=== PATIENT | female | born 1960 | race Two or more races ===

== ENCOUNTER → 2017-01-15 | Outpatient (CLI) | payer OTHER | LOC: MAMMO 09:09 | PROVIDERS: ATTEND Family Medicine ==

== ENCOUNTER → 2018-08-12 | Outpatient (CLI) | payer OTHER ==
--- NOTE | 2018-08-14 18:38 | RAD ---
DATE: 08/12/2018 EXAM: MAMMO KIZZY SCREENING BILATERAL HISTORY: Routine screening COMPARISON: 01/27/2016, 12/28/2014, and 11/23/2013 mammographic exams This study was interpreted with the benefit of Computerized Aided Detection (CAD). Breast Density: SCATTERED The breast parenchyma shows scattered fibroglandular densities. Breast parenchyma level B. FINDINGS: Small masses involving the right breast are stable compared to 01/27/2016. No distortion. Benign calcifications are present. No new mass. IMPRESSION: Benign findings. BI-RADS CATEGORY: 1 NEGATIVE RECOMMENDED FOLLOW-UP: 12M 12 MONTH FOLLOW-UP PQRS compliance statement: Patient information was entered into a reminder system with a target due date in one year for the next mammogram. Mammography is a sensitive method for finding small breast cancers, but it does not detect them all and is not a substitute for careful clinical examination. A negative mammogram does not negate a clinically suspicious finding and should not result in delay in biopsying a clinically suspicious abnormality. "Our facility is accredited by the [employer] Mammography Program."
== END | disposition home or self-care (01) ==
LOC: MAMMO 08:31
PROVIDERS: ATTEND Family Medicine
DX: Z12.31 Encounter for screening mammogram for malignant neoplasm of breast (principal); N64.89 Other specified disorders of breast
CPT/HCPCS: 77063; 77067

== ENCOUNTER → 2020-06-02 | Outpatient (CLI) | payer OTHER ==
--- NOTE | 2020-06-02 11:08 | RAD ---
DATE: 06/02/2020 8:13 AM EXAM: MAMMO KIZZY SCREENING BILATERAL HISTORY: Screening COMPARISON: 08/12/2018, 01/27/2016 Bilateral CC and MLO views of the breasts were performed. Bilateral breast tomosynthesis was performed in CC and MLO projections. This study was interpreted with the benefit of Computerized Aided Detection (CAD). FINDINGS: Breast Density: SCATTERED The breast parenchyma shows scattered fibroglandular densities. Breast parenchyma level B No suspicious masses, microcalcifications or architectural distortion is present to suggest malignancy in either breast. The visualized axillae are unremarkable. IMPRESSION: No mammographic evidence of malignancy. BI-RADS CATEGORY: 1 NEGATIVE RECOMMENDED FOLLOW-UP: 12M 12 MONTH FOLLOW-UP Annual screening mammography is recommended, unless clinically indicated sooner based on symptoms or change in physical exam. PQRS compliance statement: Patient information was entered into a reminder system with a target due date for the next mammogram. Mammography is a sensitive method for finding small breast cancers, but it does not detect them all and is not a substitute for careful clinical examination. A negative mammogram does not negate a clinically suspicious finding and should not result in delay in biopsying a clinically suspicious abnormality. "Our facility is accredited by the [employer] Mammography Program."
== END ==
LOC: MAMMO 08:22
PROVIDERS: ATTEND Family Medicine
DX: Z12.31 Encounter for screening mammogram for malignant neoplasm of breast (principal)
CPT/HCPCS: 77063; 77067

== ENCOUNTER → 2020-11-07 | Outpatient (CLI) | payer OTHER ==
[2020-09-16 13:43] VITALS: BP 101/54
[~2020-11-07] MED LIST: CYCL5TAB PO; DILT120C99 PO; FAMO20TA5 PO; PANT40TA6 PO; REGADENOSON 0.4 MG/5 ML DISP.SYRIN. IV ONE
--- NOTE | 2020-11-07 12:03 | RAD ---
MR#: [id number] Date of Study: 11/07/2020 Ordering Physician: DAVIDA TIERNEY, Referring Physician: DELROY AGUIRRE Tech: CHRISTINE Ambriz APPROVED REPORT Test Type: Pharmacological Stress Nurse/Tech: Mariela Etienne RN Test Indications: Chest Pain Cardiac History: See EMR. Medications: See EMR. Medical History: Asthma, See EMR. Resting ECG: SR Resting Heart Rate: 65 bpm Resting Blood Pressure: 151/69mmHg Pretest Chest Pain: No chest pain Nurse/Tech Notes Lungs CTA, Heart tones regular. Consent: The procedure was explained to the patient in lay terms. Informed consent was witnessed. Miguel A eout was entered into [employer] History and Stress Test performed by RT Tommy (R) (N) Pharm. Details Pharmacologic stress testing was performed using 0.4mg per 5ml of regadenoson given intravenously ove r 7-10 seconds. Stress Symptoms No chest pain or symptoms. POST EXERCISE Reason for Termination: Infusion complete Max HR: 103 bpm Max Blood Pressure: 153/71mmHg Blood Pressure response to exercise: Normal blood pressure response during stress. Heart Rate response to exercise: WNL Chest Pain: No. Arrhythmia: No. ST Change: No. INTERPRETATION Stress EKG Conclusion: Baseline EKG showed sinus rhythm. No ischemic changes at peak stress. No arr hythmias. Imaging Protocol IMAGE PROTOCOL: Rest Tc-99m/stress Tc-99m 1 day Rest: Stress: Viability: Radiopharm.Tc99m FzcifkhmaRi71s Sestamibi Zpee18eDa 32mCi Duration 15min. 13min. Img Date 11/07/2020 11/07/2020 Inj-Img [id number]. 60min. Rest Admin Site:IV - Right AntecubitalAdministrator:CHRISTINE Ambriz Stress Admin Site: IV - Right AntecubitalAdministrator: RT Tommy (R)(N) STRESS DATA End Diast. Vol.80.0mlLVEDV index BSA51.0ml End Syst. Vol.20.0mlLVESV index BSA13.0ml Myocardial Zsgm555.0gEject. Qsrtgoow41.0% Stress Scores Regional WT0.00Summed WT0.00 Regional WM0.00Summed WM0.00 Study quality was good. Left Ventricular size was Normal at Rest and Stress. Lung uptake was . Left Ventricular ejection fraction is 75%. The rest and stress images show normal perfusion, normal contraction and thickening. LV Perf. Quant 17 Seg. SSS0.00 17 Seg. SRS1.00 17 Seg. SDS0.00 Stress Defect Extent (% LAD)0.00Rest Defect Extent (% LAD)4.40Rev. Defect Extent (% LAD)0.00 Stress Defect Extent (% LCX) 0.00Rest Defect Extent (% LCX)0.00Rev. Defect Extent (% LCX)0.00 Stress Defect Extent (% RCA)0.00Rest Defect Extent (% RCA)0.00Rev. Defect Extent (% RCA)0.00 Stress Defect Extent (% ELBERT)0.00Rest Defect Extent (% ELBERT)1.50Rev. Defect Extent (% ELBERT)0.00 Conclusion 1. Regadenoson cardioisotope stress test did not show any evidence of ischemia or infarct. 2. Normal left ventricular systolic function with ejection fraction calculated at 75%. 3. Low risk for cardiac events. Signed by : Zackary Burgess, Electronically Approved : 11/07/2020 12:03:20
== END ==
LOC: NM 08:42
PROVIDERS: ATTEND Internal Medicine Cardiovascular Disease
DX: I20.0 Unstable angina (principal)
CPT/HCPCS: 78452; 93017; A9500; J2785

== ENCOUNTER 2021-03-09 03:56 | Emergency (ER) | payer OTHER ==
[~2021-03-09] VITALS: Ht 162.6 cm; Wt 61.8 kg
[~2021-03-09 03:56] MED LIST changes: -REGADENOSON 0.4 MG/5 ML DISP.SYRIN. IV ONE
[2021-03-09] MEDS ORDERED: predniSONE 10 MG TABLET PO ONE (04:15)
[2021-03-09] MEDS ORDERED: IPRATRPIUM/ALBUTEROL 0.5/2.5MG 3 ML NEBU. NEB ONE (04:15)
--- NOTE | 2021-03-09 04:30 | PHYS DOC ---
Past Medical History Past Medical History: Anxiety, Asthma, Depression, Migraines Additional Past Medical Histor: BRAIN TUMOR Past Surgical History: Cholecystectomy Additional Past Surgical Histo: "BRAIN TUMOR SURGERY IN 2000" Smoking Status: Never Smoker Alcohol Use: None General Adult EDM: Chief Complaint: SHORTNESS OF BREATH HPI: HPI: Patient is a 60 year old female with history of asthma who presents with in creasing shortness of breath over the past 3 days. States that she has heard audible wheezing, and has been treating herself with albuterol nebulizers at home, without significant benefit. She does have a cough, that is consistent with her chronic cough. Bringing up white phlegm which is usual for her, no recent changes. Denies fever/chills. No Covid contacts. Vaccinated with [place] vaccine. Never smoker. Denies chest pain. States that she gets a shot from her rough rib grader every 2 months, which she is due for next week. Review of Systems: Review of Systems: Constitutional: Denies fever or chills. [] Eyes: Denies change in visual acuity. [] HENT: Denies nasal congestion or sore throat. [] Respiratory: Reports chronic cough, and new shortness of breath. [] Cardiovascular: Denies chest pain or edema. [] GI: Denies abdominal pain, nausea, vomiting, bloody stools or diarrhea. [] : Denies dysuria. [] Musculoskeletal: Denies back pain or joint pain. [] Integument: Denies rash. [] Neurologic: Denies headache, focal weakness or sensory changes. [] Endocrine: Denies polyuria or polydipsia. [] Lymphatic: Denies swollen glands. [] Psychiatric: Denies depression or anxiety. [] Heart Score: C/O Chest Pain: No Risk Factors: Risk Factors: DM, Current or recent (<one month) smoker, HTN, HLP, family history of CAD, obesity. Risk Scores: Score 0 - 3: 2.5% MACE over next 6 weeks - Discharge Home Score 4 - 6: 20.3% MACE over next 6 weeks - Admit for Clinical Observation Score 7 - 10: 72.7% MACE over next 6 weeks - Early Invasive Strategies Current Medications: Current Medications Medications (Trade) Dose Ordered Sig/Demarcus Start Time Stop Time Status Last Admin Dose Admin Albuterol/ Ipratropium (Duoneb) 9 ml 1X ONCE 03/09/21 04:15 03/09/21 04:21 DC Prednisone (Prednisone) 50 mg 1X ONCE 03/09/21 04:15 03/09/21 04:21 DC Allergies: Allergies: Allergies Coded Allergies Type Severity Reaction Last Updated Verified No Known Drug Allergies 09/15/20 No Physical Exam: PE: Constitutional: Slight tachypnea, mild increased work of breathing. HENT: Normocephalic, atraumatic Neck: Normal range of motion, no tenderness, supple, no stridor. [] Cardiovascular:Heart rate regular rhythm, no murmur [] Lungs & Thorax: Bilateral expiratory wheezes, tachypnea, pursed lip breathing. Abdomen: Bowel sounds normal, soft, no tenderness, no masses, no pulsatile masses. [] Skin: Warm, dry, no erythema, no rash. [] Back: No tenderness, no CVA tenderness. [] Extremities: No tenderness, no cyanosis, no clubbing, ROM intact, no edema. [] Neurologic: Alert and oriented X 3, normal motor function, normal sensory function, no focal deficits noted. [] Psychologic: Affect normal, judgement normal, mood normal. [] EKG: EKG: Sinus rhythm. Rate 70. Normal axis. Normal intervals. No ischemic changes. [] Radiology/Procedures: Radiology/Procedures: [] Impression: [facility] [address] [facility] [place] [address] IMAGING REPORT Signed PATIENT: DUARTE CRAVEN ACCOUNT: [id number] : 1960 LOCATION: ER AGE: 60 SEX: F EXAM STATUS: PRE ER ORD. PHYSICIAN: TRAE MARTINEZ MD REASON: sob, hx asthma PROCEDURE: CHEST AP ONLY XR CHEST 1V Clinical History: Reason: sob, hx asthma / Spl. Instructions: / History: Technique: AP view of the chest was obtained at 03/09/2021 4:17 AM. Comparison: September 15, 2020. Findings: The cardiomediastinal silhouette is normal. The pulmonary vasculature is normal. Reticular opacities in the lower lungs are seen. Impression: Minimal interstitial infiltrates in the lung bases could be early atypical pneumonia. Electronically signed by: Liz Farris III, MD (03/09/2021 4:33 AM) [facility] DICTATED and SIGNED BY: LIZ FARRIS III, MD DATE: 03/09/21 [id number] 0 Course & Med Decision Making: Course & Med Decision Making Pertinent Labs and Imaging studies reviewed. (See chart for details) Patient 60-year-old female with history of asthma who presents with 3 days of increasing shortness of breath and wheezing refractory to home treatments. On arrival is afebrile, normal heart rate, BP, and mild tachypnea. O2 sat 93- 95%. Diffuse wheezing on exam consistent with asthma exacerbation. Chest x-ray read as concern for potential atypical pneumonia. Will give doxycycline. We will treat with 1 hour continuous duo nebs and steroids and reevaluate. 0430 Reassessed and lung sounds are now clear and her work of breathing is normalized. O2 sats 99%. We will discharge with a 5-day prednisone prescription and doxycycline. Has follow-up with her rough rib grader tomorrow. [id number] Ronda Disclaimer: Ronda Disclaimer: This electronic medical record was generated, in whole or in part, using a voice recognition dictation system. Departure Departure Impression: Primary Impression: Asthma exacerbation Disposition: HOME / SELF CARE / HOMELESS Condition: STABLE Referrals: MOON SMITH (PCP) Schedule an appointment. Call today to be seen in the next few days. Patient Instructions: Asthma, Adult Additional Instructions: Please meat pickler your prednisone and antibiotic and take as prescribed. Follow-up with your rough rib grader tomorrow. If you have worsening shortness of breath, new chest pain, fever/chills, or other new/concerning symptoms you can return to the emergency department for reevaluation. Scripts Prednisone (PREDNISONE) 50 Mg Tablet 1 TAB PO DAILY, #5 TAB 0 Refills Prov: TRAE MARTINEZ MD 03/09/21 Doxycycline Monohydrate (DOXYCYCLINE MONOHYDRATE) 100 Mg Capsule 1 CAP PO BID for 7 Days, #14 CAP 0 Refills Prov: TRAE MARTINEZ MD 03/09/21 TRAE MARTINEZ MD Mar 09, 2021 04:30
--- NOTE | 2021-03-09 04:35 | RAD ---
XR CHEST 1V Clinical History: Reason: sob, hx asthma / Spl. Instructions: / History: Technique: AP view of the chest was obtained at 03/09/2021 4:17 AM. Comparison: September 15, 2020. Findings: The cardiomediastinal silhouette is normal. The pulmonary vasculature is normal. Reticular opacities in the lower lungs are seen. Impression: Minimal interstitial infiltrates in the lung bases could be early atypical pneumonia. Electronically signed by: Juan Duong III, MD (03/09/2021 4:33 AM) [facility]
--- NOTE | 2021-03-09 04:54 | EKG ---
[facility] [address] [place] [address] Test Date: 2021-03-09 Test Time: 04:13:37 Pat Name: DUARTE CRAVEN Department: Room: Gender: F Machinist Set Up: : 1960 Requested By: TRAE MARTINEZ Order Number: [id number] Reading MD: Zackary Burgess Measurements Intervals [place] Rate: 70 P: 48 CA: 160 QRS: 23 QRSD: 82 T: 62 QT: 396 QTc: 430 Interpretive Statements SINUS RHYTHM NORMAL ECG RI6.02 Compared to ECG 09/15/2020 17:37:08 No significant changes Electronically Signed On 03-10-2021 14:27:56 [employer] by Zackary Burgess
[2021-03-09] MEDS ORDERED: DOXY-181 PO (05:09)
[2021-03-09] MEDS ORDERED: PRED50TA PO (05:11)
[2021-03-09] MEDS ORDERED: DOXYCYCLINE HYCLATE 100 MG TABLET PO ONE (05:15)
[2021-03-09 07:02] VITALS: BP 156/73
== END 2021-03-09 07:05 | disposition home or self-care (01) ==
LOC: ER 03:56
DX: J45.901 Unspecified asthma with (acute) exacerbation (principal); G43.909 Migraine, unspecified, not intractable, without status migrainosus
CPT/HCPCS: 71045; 93005; 94644; 94760; 99285; J7512